=== PATIENT | female | born 1950 | race Caucasian/White ===

== ENCOUNTER 2016-07-08 07:46 | Outpatient (CLI) | payer MEDICARE, OTHER ==
[2012-08-20 07:44] VITALS: BP 126/67
== END 2016-07-08 07:47 ==
LOC: LAB 07:46
PROVIDERS: ATTEND Family Medicine
DX: E78.1 Pure hyperglyceridemia (principal); E11.9 Type 2 diabetes mellitus without complications
CPT/HCPCS: 36415; 83036; 84478

== ENCOUNTER 2016-11-03 07:09 | Outpatient (CLI) | payer MEDICARE, OTHER ==
[2012-08-20 07:44] VITALS: BP 126/67
== END 2016-11-03 07:10 ==
LOC: LAB 07:09
PROVIDERS: ATTEND Family Medicine
DX: E11.9 Type 2 diabetes mellitus without complications (principal)
CPT/HCPCS: 36415; 83036

== ENCOUNTER 2016-11-26 07:57 | Outpatient (CLI) | payer MEDICARE, OTHER ==
[2012-08-20 07:44] VITALS: BP 126/67
[2016-11-26 08:12] LABS: BASOPHILS % 0.4 (0.0-1.5); EOSINOPHILS % 6.5 % (0.0-6.8); MEAN CORPUSCULAR HEMOGLOBIN 29.2 pg (28.0-34.0); MEAN CORPUSCULAR VOLUME 92.6 fl (80.0-100.0); MONOCYTES % 5.8 % (0.0-11.0); NEUTROPHILS # 4.5 # k/uL (1.4-7.7)
== END 2016-11-26 08:00 ==
LOC: LAB 07:57
PROVIDERS: ATTEND Family Medicine
DX: E11.9 Type 2 diabetes mellitus without complications (principal); R23.2 Flushing
CPT/HCPCS: 36415; 85025

== ENCOUNTER 2017-07-21 09:08 | Outpatient (CLI) | payer MEDICARE, OTHER ==
[2012-08-20 07:44] VITALS: BP 126/67
[2017-07-21 16:47] LABS: eGFR (African) > 60; eGFR (Non-African) > 60
== END 2017-07-21 09:10 ==
LOC: LAB 09:08
PROVIDERS: ATTEND Family Medicine
DX: E11.9 Type 2 diabetes mellitus without complications (principal)
CPT/HCPCS: 36415; 80053; 80061; 82043; 83036

== ENCOUNTER 2017-11-03 08:30 | Outpatient (CLI) | payer MEDICARE, OTHER ==
[2012-08-20 07:44] VITALS: BP 126/67
== END 2017-11-03 08:32 ==
LOC: LAB 08:30
PROVIDERS: ATTEND Family Medicine
DX: E11.9 Type 2 diabetes mellitus without complications (principal)
CPT/HCPCS: 36415; 83036

== ENCOUNTER 2017-11-13 17:58 | Emergency (ER) | payer MEDICARE, OTHER ==
[2017-11-13] MEDS ORDERED: DEXAMETHASONE SOD PHOS 4 MG/ML VIAL IM ONE (18:20)
--- NOTE | 2017-11-13 18:25 | ED Physician Documentation ---
General Adult - HISTORIAN Historian: patient - HPI Stated Complaint: swollen eyes Chief Complaint: General Adult Additional Information: Thinks she was exposed to poison suzanna. Lips felt swollen last evening and today her face and shauna orbital areas are also swollen. Vision is not disturbed. Has been applying ice packs which has helped the swelling. Benadryl this am made no difference in the itching. No difficulty breathing. To leave on cruise in a few days. No other modifying factors or associated signs. - ROS CONST: no problems - PAST HX Past History: none Allergies/Adverse Reactions: Allergies Allergy/AdvReac Type Severity Reaction Status Date / Time No Known Allergies Allergy Verified 08/19/12 05:47 Home Medications: Ambulatory Orders Medication Instructions Recorded Aspirin [Sweetie] 81 mg PO QD 08/19/12 Atorvastatin Calcium [Lipitor] 40 mg PO D 08/19/12 - SOCIAL HX Smoking History: non-smoker - FAMILY HX Family History: No - VITAL SIGNS Vital Signs: Vital Signs Temp Pulse Resp BP Pulse Ox 126/67 08/20/12 07:00 - REVIEWED ASSESSMENTS Nursing Assessment Reviewed: Yes Vitals Reviewed: Yes ED Results Lab/Radiology - Orders Orders: ED Orders Category Date Time Status Dexamethasone Sod Phosphate [Decadron] Med 11/13/17 18:20 Discontinued 12 mg IM NOW ONE General Adult Physical Exam - PHYSICAL EXAM GENERAL APPEARANCE: mild distress EENT: eye inspection normal, pharynx normal (Mallampati 2), other (Shauna orbital and malar swelling, L>R, and some erythema) NECK: normal inspection, supple RESPIRATORY: no resp distress, breath sounds normal CVS: reg rate & rhythm, heart sounds normal, no murmur SKIN: warm/dry, normal color (except as above) EXTREMITIES: no evidence of injury, no edema NEURO: CN's nml as tested, motor nml, sensation nml Discharge Clincal Impression: Poison suzanna dermatitis Referrals: Mirela Davila MD [Primary Care Provider] - 2 Days Condition: Fair Disposition: HOME, SELF-CARE Decision to Admit: NO Decision Time: 18:25
[2017-11-13 19:29] VITALS: BP 147/80
== END 2017-11-13 18:40 | disposition home or self-care (01) ==
LOC: ED 17:58
DX: L23.7 Allergic contact dermatitis due to plants, except food (principal)
CPT/HCPCS: 96372; 99284; J1100

== ENCOUNTER 2018-04-22 11:10 | Outpatient (CLI) | payer MEDICARE, OTHER | END 2018-04-22 11:12 | LOC: LAB 11:10 | PROVIDERS: ATTEND Family Medicine | DX: E11.9 Type 2 diabetes mellitus without complications (principal) | CPT/HCPCS: 36415; 83036 ==

== ENCOUNTER 2018-09-20 07:04 | Outpatient (CLI) | payer MEDICARE, OTHER ==
[2018-09-20 07:47] LABS: eGFR (Non-African) > 60
== END 2018-09-20 07:06 ==
LOC: LAB 07:04
PROVIDERS: ATTEND Family Medicine
DX: E11.9 Type 2 diabetes mellitus without complications (principal)
CPT/HCPCS: 36415; 80053; 80061; 82043; 83036

== ENCOUNTER 2019-03-15 09:02 | Outpatient (CLI) | payer MEDICARE, OTHER | END 2019-03-15 09:04 | LOC: LAB 09:02 | PROVIDERS: ATTEND Family Medicine | DX: E11.9 Type 2 diabetes mellitus without complications (principal) | CPT/HCPCS: 36415; 83036 ==

== ENCOUNTER 2019-04-04 08:55 | Outpatient (CLI) | payer MEDICARE, OTHER ==
--- NOTE | 2019-04-05 11:22 | Diagnostic Imaging Report ---
BIBIANA PERRY [facility] [address] [address] Report Submission Date: Apr 04, 2019 10:27:58 AM CDT Patient Study Name: ENRIQUE MINER Date: Apr 04, 2019 12:00:00 AM CDT Modality Type: DEXA\OT Gender: F Description: DEXA : 48 Institution: [facility] Physician: BIBIANA PERRY Examination: Bone density History: Assess bone mineralization Comparison exams: 23 Oct 2009 Technique: DEXA protocol Findings: Average bone mineral density from L2 through L4: 1.285 grams cm2. T score: 0.7 Average bone mineral density of the left femoral neck: 0.825 grams cm2. T score: -2.0 Average bone mineral density of the right femoral neck: 0.871 grams cm2. T score: -1.5 Impression: Normal lumbar spine mineralization for age Femoral neck osteopenia. Electronically signed on Apr 04, 2019 10:27:58 AM CDT by: Marcos HATCH
== END 2019-04-04 09:55 | disposition home or self-care (01) ==
LOC: RAD 08:55
PROVIDERS: ATTEND Family Medicine
DX: Z78.0 Asymptomatic menopausal state (principal)
CPT/HCPCS: 77080